=== PATIENT | male | born 1935 | race Caucasian/White ===

== ENCOUNTER 2017-08-04 16:32 | Emergency (ER) | payer MEDICARE ==
[~2017-08-04] VITALS: Ht 172.7 cm; Wt 85.0 kg
[2017-08-04] MEDS ORDERED: SODIUM CHLORIDE 0.9% 1,000 ML IV ONE (18:21)
[2017-08-04 18:54] LABS: BASOPHILS % 0.9 % (0.0-2.0); EOSINOPHILS % 3.3 % (0.0-5.0); HEMATOCRIT. 25.9 % (42.0-52.0); HEMOGLOBIN. 9.1 g/dL (14.0-18.0); LYMPHOCYTES % 13.5 % (20.0-50.0); MEAN CORPUSCULAR HEMOGLOBIN 34.6 pg (28.0-32.0); MEAN CORPUSCULAR VOLUME 98.4 fL (80.0-94.0); MEAN PLATELET VOLUME 7.8 fl (7.4-10.4); MONOCYTES % 7.2 % (2.0-8.0); NEUTROPHILS % 75.1 % (40.0-76.0); PLATELET 163 x1000/uL (130-400); RED BLOOD CELL COUNT 2.63 mill/uL (4.7-6.1)
[2017-08-04 18:59] LABS: CHLORIDE 105 mEq/L (98-107)
[2017-08-04 19:01] LABS: INR 1.1; PROTHROMBIN TIME 11.8 sec (9.4-11.6)
[2017-08-04 19:02] LABS: ETHANOL BLOOD < 10 mg/dL
[2017-08-04 19:04] LABS: AMMONIA 29 uMol/L (<32)
[2017-08-04] MEDS ORDERED: ASPIRIN 325MG EC TABLET PO ONE (20:00)
[2017-08-04 21:24] VITALS: BP 119/70
== END 2017-08-04 22:10 | disposition left against medical advice (07) ==
LOC: ER 17:00
DX: R55 Syncope and collapse (principal); D50.9 Iron deficiency anemia, unspecified; N28.9 Disorder of kidney and ureter, unspecified; R74.0 Nonspecific elevation of levels of transaminase and lactic acid dehydrogenase [LDH]; I10 Essential (primary) hypertension; E11.9 Type 2 diabetes mellitus without complications; I25.2 Old myocardial infarction; Z79.82 Long term (current) use of aspirin; Z86.73 Personal history of transient ischemic attack (TIA), and cerebral infarction without residual deficits; Z95.0 Presence of cardiac pacemaker
CPT/HCPCS: 36415; 70450; 71045; 80053; 82140; 83690; 83880; 84484; 85025; 85610; 93005; 96360; 99285; G0482; J7030

== ENCOUNTER → 2019-03-01 | Outpatient (CLI) | payer MEDICARE | END | disposition home or self-care (01) | LOC: RAD 15:21 | PROVIDERS: ATTEND Podiatrist Foot & Ankle Surgery | DX: M77.32 Calcaneal spur, left foot (principal) | CPT/HCPCS: 73630 ==

== ENCOUNTER → 2019-04-11 | Outpatient (CLI) | payer MEDICARE | END | disposition home or self-care (01) | LOC: RAD 13:57 | PROVIDERS: ATTEND Podiatrist Foot & Ankle Surgery | DX: S92.322A Displaced fracture of second metatarsal bone, left foot, initial encounter for closed fracture (principal); M77.32 Calcaneal spur, left foot; X58.XXXA Exposure to other specified factors, initial encounter; Y93.89 Activity, other specified; Y92.89 Other specified places as the place of occurrence of the external cause; Y99.8 Other external cause status | CPT/HCPCS: 73630 ==

== ENCOUNTER → 2019-09-13 | Outpatient (CLI) | payer MEDICARE | END | disposition home or self-care (01) | LOC: LAB 12:42 | PROVIDERS: ATTEND Podiatrist Foot & Ankle Surgery | DX: M25.572 Pain in left ankle and joints of left foot (principal) | CPT/HCPCS: 73610 ==

== ENCOUNTER → 2019-11-27 | Outpatient (CLI) | payer MEDICARE | END | disposition home or self-care (01) | LOC: RAD 13:44 | PROVIDERS: ATTEND Podiatrist Foot & Ankle Surgery | DX: S92.322D Displaced fracture of second metatarsal bone, left foot, subsequent encounter for fracture with routine healing (principal); M19.072 Primary osteoarthritis, left ankle and foot; M19.071 Primary osteoarthritis, right ankle and foot; X58.XXXD Exposure to other specified factors, subsequent encounter | CPT/HCPCS: 73630 ==

== ENCOUNTER 2023-07-29 19:06 | Inpatient (IN) | payer MEDICARE, OTHER ==
[~2023-07-29] VITALS: Ht 177.8 cm; Wt 79.8 kg
[~2023-07-29 19:06] MED LIST: ASPI-1160 PO; ATOR-2 MT; BUME1TAB8 MT; CALC-1305 PO; EMPA25TA MT; ERGO1250 PO; FERR325T30 PO; FINA5TAB11 MT; GABA-532 PO; INSU100I24 SUBCUT; INSULIN GLARGINE 100 UNITS/ML SUBCUT SCH; METO-411 MT; PANT40TA51 MT; SACU1TAB MT; SENN-257 MT; SPIR25TA6 MT; TAMS-11 MT
[2023-07-29] MEDS ORDERED: NITROGLYCERIN 0.4MG TABLET SL SL PRN (19:30)
[2023-07-29] MEDS ORDERED: ONDANSETRON HCL 4MG/2ML INJ IV PRN (19:30)
[2023-07-29] MEDS ORDERED: DEXTROSE 50% WATER 50ML SYRINGE IV PRN (19:30)
[2023-07-29] MEDS ORDERED: CLONIDINE 0.1MG TABLET PO PRN (19:30)
[2023-07-29] MEDS ORDERED: ACETAMINOPHEN 325MG TABLET PO PRN (19:30)
[2023-07-29] MEDS ORDERED: MAGNESIUM/ALUMINUM HYDROXIDE/SIMETHICONE 30ML UDC PO PRN (19:30)
[2023-07-29] MEDS ORDERED: DOCUSATE SODIUM 100MG CAPSULE PO PRN (19:30)
[2023-07-29 20:00] VITALS: BP 100/61; PULSE 95; RESP 20; TEMP 97
[2023-07-29] MEDS: BLOOD SUGAR DIAGNOSTIC STRIP TEST SCH (21:00)
[2023-07-29] MEDS: INSULIN LISPRO 100 UNITS/ML SUBCUT SCH (21:00)
[2023-07-29] MEDS: ACETAMINOPHEN 325MG TABLET PO PRN (22:34)
[2023-07-29] MEDS: PANTOPRAZOLE SODIUM 40 MG/VIAL IV SCH (22:36)
[2023-07-29] MEDS: CEFTRIAXONE 1GM/50ML 50 ML IV SCH (22:37)
[2023-07-29 23:47] VITALS: PULSE 108; RESP 18; O2SAT 98
[2023-07-29] MEDS: IPRATROPIUM/ALBUTEROL 0.5-3(2.5)MG/3ML NEB HHN PRN (23:47)
[2023-07-30] MEDS ORDERED: SACU1TAB PO (00:29)
[2023-07-30] MEDS: MELATONIN 3MG TABLET PO PRN (01:24)
[2023-07-30] MEDS ORDERED: *PATIENT'S OWN MEDICATION STORAGE XX SCH (06:30)
[2023-07-30 06:59] LABS: BASOPHILS % 1.3 % (0.0-2.0); EOSINOPHILS % 5.4 % (0.0-5.0); HEMATOCRIT. 24.4 % (42.0-52.0); LYMPHOCYTES % 11.7 % (20.0-50.0); MEAN CORPUSCULAR HEMOGLOBIN 32.7 pg (28.0-32.0); MEAN CORPUSCULAR VOLUME 99.1 fL (80.0-94.0); MEAN PLATELET VOLUME 8.6 fl (7.4-10.4); MONOCYTES % 6.1 % (2.0-8.0); NEUTROPHILS % 75.5 % (40.0-76.0); PLATELET 202 x1000/uL (130-400); RED BLOOD CELL COUNT 2.46 mill/uL (4.7-6.1); RED CELL DISTRIBUTION WIDTH 17.1 % (11.6-14.6); WHITE BLOOD COUNT 5.2 x1000/uL (4.5-11.0)
[2023-07-30 07:20] LABS: CHLORIDE 112 mEq/L (98-107); POTASSIUM 4.4 mEq/L (3.5-5.1); SODIUM 139 mEq/L (136-145)
[2023-07-30 07:22] VITALS: PULSE 100; RESP 20
[2023-07-30 07:38] LABS: CARBON DIOXIDE 20 mEq/L (21-32)
[2023-07-30 07:44] LABS: CREATININE 1.5 mg/dL (0.6-1.3); GLUCOSE 119 mg/dL (70-105); UREA NITROGEN BLOOD 36 mg/dL (9-23)
[2023-07-30 07:46] LABS: ALANINE AMINOTRANSFERASE 12 IU/L (10-49); ALBUMIN 3.1 g/dL (3.2-4.8); ASPARTATE AMINOTRANSFERASE 18 IU/L (<34)
[2023-07-30 07:47] LABS: BILIRUBIN TOTAL 0.5 mg/dL (0.1-1.0); PROTEIN TOTAL 6.6 g/dL (6.0-8.3)
[2023-07-30 07:49] LABS: PREALBUMIN < 5.0 mg/dl (10.0-40.0)
[2023-07-30 08:00] VITALS: BP 104/54; PULSE 79; RESP 20; TEMP 97.7
[2023-07-30 08:36] VITALS: BP 132/54; TEMP 97.8
[2023-07-30] MEDS: ASCORBIC ACID 500 MG TABLET PO SCH (08:53)
[2023-07-30] MEDS: FERROUS SULFATE 325MG TABLET PO SCH (08:53)
[2023-07-30] MEDS: INSULIN GLARGINE 100 UNITS/ML SUBCUT SCH (09:18)
[2023-07-30 20:00] VITALS: BP 111/63; PULSE 78; RESP 20; TEMP 98.4
[2023-07-30] MEDS ORDERED: MELATONIN 3MG TABLET PO SCH (21:00)
[2023-07-30 21:50] VITALS: PULSE 87; RESP 18; O2SAT 96
[2023-07-30] MEDS: NITROFURANTOIN 100MG M/M CAPSULE PO SCH (21:56)
[2023-07-30] MEDS: MELATONIN 3MG TABLET PO SCH (21:57)
[2023-07-31 08:00] VITALS: BP 109/52; PULSE 79; RESP 20; TEMP 96.4; TEMP 98
[2023-07-31 08:05] LABS: BASOPHILS % 1.2 % (0.0-2.0); EOSINOPHILS % 5.1 % (0.0-5.0); HEMATOCRIT. 23.8 % (42.0-52.0); HEMOGLOBIN. 7.9 g/dL (14.0-18.0); LYMPHOCYTES % 10.8 % (20.0-50.0); MEAN CORPUSCULAR HEMOGLOBIN 33.1 pg (28.0-32.0); MEAN CORPUSCULAR HGB CONC 33.2 g/dL (31.0-37.0); MEAN CORPUSCULAR VOLUME 99.7 fL (80.0-94.0); MONOCYTES % 5.1 % (2.0-8.0); NEUTROPHILS % 77.8 % (40.0-76.0); PLATELET 196 x1000/uL (130-400); RED BLOOD CELL COUNT 2.39 mill/uL (4.7-6.1); RED CELL DISTRIBUTION WIDTH 16.6 % (11.6-14.6); WHITE BLOOD COUNT 5.1 x1000/uL (4.5-11.0)
[2023-07-31 08:08] LABS: CHLORIDE 112 mEq/L (98-107); POTASSIUM 4.5 mEq/L (3.5-5.1); SODIUM 137 mEq/L (136-145)
[2023-07-31 08:09] LABS: CARBON DIOXIDE 21 mEq/L (21-32)
[2023-07-31 08:13] LABS: IRON 24 ug/dL (65-175)
[2023-07-31 08:14] LABS: CREATININE 1.5 mg/dL (0.6-1.3); GLUCOSE 121 mg/dL (70-105); UREA NITROGEN BLOOD 33 mg/dL (9-23)
[2023-07-31 08:16] LABS: ALANINE AMINOTRANSFERASE 10 IU/L (10-49); ALBUMIN 3.1 g/dL (3.2-4.8); ASPARTATE AMINOTRANSFERASE 18 IU/L (<34); BILIRUBIN TOTAL 0.5 mg/dL (0.1-1.0); PHOSPHORUS 3.3 mg/dL (2.5-4.9); PROTEIN TOTAL 6.3 g/dL (6.0-8.3); TOTAL IRON BINDING CAPACITY 328 ug/dl (250-425)
[2023-07-31 08:17] LABS: THYROID STIMULATING HORMONE 1.79 uIU/mL (0.55-4.78)
[2023-07-31 08:20] LABS: FERRITIN 111 ng/mL (22-322); FOLIC ACID (FOLATE) SERUM 15.76 ng/mL (>5.38); VITAMIN B12 SERUM 1242 pg/mL (211-911)
[2023-07-31 08:37] LABS: CALCIUM 9.4 mg/dL (8.7-10.4)
[2023-07-31] MEDS ORDERED: NALOXONE HCL 0.4MG/ML VIAL IV PRN (10:45)
[2023-07-31] MEDS: FERROUS SULFATE 325MG TABLET PO SCH (13:29)
[2023-07-31 17:00] LABS: CLARITY URINE CLEAR (CLEAR); COLOR URINE YELLOW (YELLOW); GLUCOSE URINE NEGATIVE (NEGATIVE); KETONES URINE TRACE (NEGATIVE); LEUKOCYTE ESTERASE URINE 1+ (NEGATIVE); NITRITE URINE NEGATIVE (NEGATIVE); OCCULT BLOOD URINE 1+ (NEGATIVE); PH URINE 5.5 (4.5-8.0); PROTEIN URINE 1+ (NEGATIVE); SPECIFIC GRAVITY URINE 1.019 (1.005-1.030); UROBILINOGEN URINE 0.2 E.U./dL (0.2-1.0)
[2023-07-31 17:23] LABS: BACTERIA URINE TRACE; SQUAMOUS EPITHELIAL CELL URINE FEW /lpf (RARE/1+); WBC URINE 0-2 /hpf (0-2)
[2023-07-31 20:00] VITALS: BP 107/54; PULSE 80; RESP 20; TEMP 97.5
[2023-07-31] MEDS: ZOLPIDEM TARTRATE 5MG TABLET PO PRN (20:52)
[2023-07-31 21:35] VITALS: PULSE 78; RESP 18
[2023-08-01 08:00] VITALS: BP 112/53; PULSE 71; RESP 18; TEMP 99.3
[2023-08-01] MEDS: ASCORBIC ACID 500 MG TABLET PO SCH (09:18)
[2023-08-01 13:05] VITALS: PULSE 80; RESP 20
[2023-08-01 19:46] VITALS: BP 105/55; PULSE 95; RESP 19; TEMP 97.6
[2023-08-01 21:51] VITALS: PULSE 104; RESP 22; O2SAT 90
[2023-08-02 06:35] LABS: BASOPHILS % 0.8 % (0.0-2.0); EOSINOPHILS % 3.9 % (0.0-5.0); HEMATOCRIT. 23.5 % (42.0-52.0); HEMOGLOBIN. 7.7 g/dL (14.0-18.0); LYMPHOCYTES % 11.3 % (20.0-50.0); MEAN CORPUSCULAR HEMOGLOBIN 32.7 pg (28.0-32.0); MEAN CORPUSCULAR HGB CONC 32.8 g/dL (31.0-37.0); MEAN CORPUSCULAR VOLUME 99.7 fL (80.0-94.0); MEAN PLATELET VOLUME 7.7 fl (7.4-10.4); MONOCYTES % 6.7 % (2.0-8.0); NEUTROPHILS % 77.3 % (40.0-76.0); PLATELET 192 x1000/uL (130-400); RED BLOOD CELL COUNT 2.35 mill/uL (4.7-6.1); RED CELL DISTRIBUTION WIDTH 16.2 % (11.6-14.6); WHITE BLOOD COUNT 4.5 x1000/uL (4.5-11.0)
[2023-08-02 06:51] LABS: CARBON DIOXIDE 20 mEq/L (21-32); CHLORIDE 109 mEq/L (98-107); POTASSIUM 4.3 mEq/L (3.5-5.1); SODIUM 136 mEq/L (136-145)
[2023-08-02 06:52] LABS: CALCIUM 9.3 mg/dL (8.7-10.4)
[2023-08-02 06:57] LABS: CREATININE 1.5 mg/dL (0.6-1.3); GLUCOSE 112 mg/dL (70-105); UREA NITROGEN BLOOD 32 mg/dL (9-23)
[2023-08-02 06:59] LABS: PHOSPHORUS 3.2 mg/dL (2.5-4.9)
[2023-08-02 08:00] VITALS: BP 109/62; PULSE 94; RESP 19; TEMP 97.3
[2023-08-02] MEDS: PANTOPRAZOLE 40MG DR TABLET PO SCH (10:00)
[2023-08-02] MEDS: LEVOFLOXACIN 250MG TABLET PO SCH (14:46)
[2023-08-02 16:22] VITALS: PULSE 91; RESP 20; O2SAT 98
[2023-08-02 20:00] VITALS: BP 112/70; PULSE 96; RESP 18; TEMP 97.1
[2023-08-02 23:40] VITALS: PULSE 93; RESP 18; O2SAT 92
[2023-08-03] MEDS: PANTOPRAZOLE 40MG DR TABLET PO SCH (06:29)
[2023-08-03 07:29] LABS: BASOPHILS % 0.9 % (0.0-2.0); DIFFERENTIAL COMMENT 0; HEMATOCRIT. 24.3 % (42.0-52.0); LYMPHOCYTES % 11.1 % (20.0-50.0); MEAN CORPUSCULAR HEMOGLOBIN 33.6 pg (28.0-32.0); MEAN CORPUSCULAR HGB CONC 33.1 g/dL (31.0-37.0); MEAN CORPUSCULAR VOLUME 101.6 fL (80.0-94.0); MEAN PLATELET VOLUME 8.3 fl (7.4-10.4); MONOCYTES % 5.4 % (2.0-8.0); NEUTROPHILS % 79.6 % (40.0-76.0); PLATELET 197 x1000/uL (130-400); RED BLOOD CELL COUNT 2.39 mill/uL (4.7-6.1); RED CELL DISTRIBUTION WIDTH 16.4 % (11.6-14.6); WHITE BLOOD COUNT 5.4 x1000/uL (4.5-11.0)
[2023-08-03 08:00] VITALS: BP 129/63; PULSE 111; RESP 17; TEMP 97.2
[2023-08-03 08:04] LABS: CALCIUM 9.3 mg/dL (8.7-10.4); POTASSIUM 4.7 mEq/L (3.5-5.1)
[2023-08-03 08:10] LABS: CREATININE 1.4 mg/dL (0.6-1.3)
[2023-08-03] MEDS: MULTIVITAMINS,THER W-MINERALS TABLET PO SCH (08:10)
[2023-08-03 09:10] VITALS: PULSE 88; RESP 18; O2SAT 99
[2023-08-03] MEDS: ERGOCALCIFEROL 50000UNITS CAPSULE PO SCH (13:18)
[2023-08-03] MEDS: TRAMADOL 50MG TABLET PO PRN (15:17)
[2023-08-03 15:38] VITALS: PULSE 94; RESP 18; O2SAT 98
[2023-08-03 20:00] VITALS: BP 113/45; PULSE 98; RESP 20; TEMP 97.2
[2023-08-03 20:03] VITALS: PULSE 106; RESP 18; O2SAT 97
[2023-08-03] MEDS: ACETYLCYSTEINE 200MG/ML 20% VIAL 4ML INH NR (20:03)
[2023-08-03] MEDS: IPRATROPIUM/ALBUTEROL 0.5-3(2.5)MG/3ML NEB HHN SCH (20:03)
[2023-08-03] MEDS: CARVEDILOL 3.125 MG TABLET PO SCH (21:00)
[2023-08-03] MEDS: ATORVASTATIN CALCIUM 20MG TABLET PO SCH (21:16)
[2023-08-04 02:12] VITALS: PULSE 98; RESP 20; O2SAT 95
[2023-08-04 06:28] LABS: CARBON DIOXIDE 20 mEq/L (21-32); CHLORIDE 109 mEq/L (98-107); POTASSIUM 4.5 mEq/L (3.5-5.1); SODIUM 136 mEq/L (136-145)
[2023-08-04 06:29] LABS: CALCIUM 9.1 mg/dL (8.7-10.4)
[2023-08-04 06:34] LABS: CREATININE 1.5 mg/dL (0.6-1.3); GLUCOSE 104 mg/dL (70-105); TRIGLYCERIDE 54 mg/dL (0-150); UREA NITROGEN BLOOD 28 mg/dL (9-23)
[2023-08-04 06:35] LABS: CHOLESTEROL 115 mg/dL (<200); LDL CHOLESTEROL 70 mg/dL (5-100)
[2023-08-04 06:36] LABS: HDL CHOLESTEROL 39 mg/dL (>55)
[2023-08-04 06:56] LABS: BASOPHILS % 1.1 % (0.0-2.0); EOSINOPHILS % 3.6 % (0.0-5.0); HEMATOCRIT. 24.4 % (42.0-52.0); HEMOGLOBIN. 8.2 g/dL (14.0-18.0); LYMPHOCYTES % 11.7 % (20.0-50.0); MEAN CORPUSCULAR HEMOGLOBIN 32.9 pg (28.0-32.0); MEAN CORPUSCULAR HGB CONC 33.4 g/dL (31.0-37.0); MEAN CORPUSCULAR VOLUME 98.4 fL (80.0-94.0); MEAN PLATELET VOLUME 8.4 fl (7.4-10.4); MONOCYTES % 6.3 % (2.0-8.0); NEUTROPHILS % 77.3 % (40.0-76.0); PLATELET 205 x1000/uL (130-400); RED BLOOD CELL COUNT 2.48 mill/uL (4.7-6.1); RED CELL DISTRIBUTION WIDTH 16.5 % (11.6-14.6); WHITE BLOOD COUNT 5.2 x1000/uL (4.5-11.0)
[2023-08-04 08:00] VITALS: BP 111/55; PULSE 87; RESP 18; TEMP 96.4
[2023-08-04 08:21] VITALS: PULSE 88; RESP 20
[2023-08-04] MEDS ORDERED: FUROSEMIDE 40MG/4ML VIAL IVP NR (09:00)
[2023-08-04 13:30] VITALS: PULSE 88; RESP 18
[2023-08-04] MEDS: LACTULOSE 20G/30ML UDC PO SCH (13:33)
[2023-08-04] MEDS: BISACODYL 10MG SUPP PR NR (13:34)
[2023-08-04] MEDS: ENOXAPARIN 80MG/0.8ML SYR SUBCUT NR (15:02)
[2023-08-04 16:28] LABS: INR 1.1; PROTHROMBIN TIME 11.7 sec (9.6-11.0)
[2023-08-04 20:00] VITALS: BP 113/57; PULSE 106; RESP 18; TEMP 98.2
[2023-08-04 20:04] VITALS: PULSE 97; RESP 18; O2SAT 99
[2023-08-05 02:10] VITALS: PULSE 101; RESP 18
[2023-08-05 05:57] LABS: HEMOGLOBIN. 8.1 g/dL (14.0-18.0); MEAN CORPUSCULAR HEMOGLOBIN 32.9 pg (28.0-32.0); MEAN CORPUSCULAR HGB CONC 32.2 g/dL (31.0-37.0); MEAN CORPUSCULAR VOLUME 102.1 fL (80.0-94.0); MEAN PLATELET VOLUME 8.3 fl (7.4-10.4); PLATELET 221 x1000/uL (130-400); RED BLOOD CELL COUNT 2.45 mill/uL (4.7-6.1); RED CELL DISTRIBUTION WIDTH 17.1 % (11.6-14.6); WHITE BLOOD COUNT 8.1 x1000/uL (4.5-11.0)
[2023-08-05] MEDS: ENOXAPARIN 80MG/0.8ML SYR SUBCUT SCH (06:00)
[2023-08-05 06:06] LABS: DIFFERENTIAL COMMENT 1
[2023-08-05 06:08] LABS: CHLORIDE 107 mEq/L (98-107); SODIUM 133 mEq/L (136-145)
[2023-08-05 06:09] LABS: CARBON DIOXIDE 19 mEq/L (21-32)
[2023-08-05 06:10] LABS: CALCIUM 9.4 mg/dL (8.7-10.4)
[2023-08-05 06:14] LABS: CREATININE 1.5 mg/dL (0.6-1.3); GLUCOSE 135 mg/dL (70-105); UREA NITROGEN BLOOD 29 mg/dL (9-23)
[2023-08-05 07:40] VITALS: PULSE 78; RESP 18; O2SAT 97
[2023-08-05 08:00] VITALS: BP 120/53; PULSE 89; RESP 19; TEMP 99.3
[2023-08-05] MEDS: FUROSEMIDE 40MG TABLET PO SCH (09:25)
[2023-08-05] MEDS: NA PHOS,M-B/NA PHOS,DI-BA ENEMA 118ML PR NR (10:15)
[2023-08-05 14:06] LABS: ANISOCYTOSIS 1+; PLATELET ESTIMATE NORMAL
[2023-08-05 14:25] VITALS: PULSE 81; RESP 16; O2SAT 98
[2023-08-05] MEDS: BISACODYL 10MG SUPP PR NR (16:22)
[2023-08-05] MEDS: GUAIFENESIN 200MG/10ML SUGAR FREE UDC PO PRN (16:30)
[2023-08-05 20:00] VITALS: BP 122/60; PULSE 94; RESP 18; TEMP 96.9
[2023-08-05 20:36] VITALS: PULSE 96; RESP 16; O2SAT 92
[2023-08-05] MEDS: SENNOSIDES/DOCUSATE SOD 8.6/50MG TABLET PO SCH (21:02)
[2023-08-06] MEDS: TRAMADOL 50MG TABLET PO PRN (00:38)
[2023-08-06] MEDS: ZOLPIDEM TARTRATE 5MG TABLET PO PRN (00:39)
[2023-08-06 02:13] VITALS: PULSE 87; RESP 16; O2SAT 93
[2023-08-06 08:00] VITALS: BP 102/54; PULSE 91; RESP 20; TEMP 97.6
[2023-08-06 09:35] VITALS: PULSE 90; RESP 20
[2023-08-06] MEDS: DOCUSATE SODIUM 250MG CAPSULE PO SCH (09:58)
[2023-08-06] MEDS ORDERED: NALOXONE HCL 0.4MG/ML VIAL IV PRN (11:30)
[2023-08-06 14:28] VITALS: PULSE 87; RESP 18
[2023-08-06 15:02] LABS: HEMATOCRIT. 29.3 % (42.0-52.0); HEMOGLOBIN. 9.2 g/dL (14.0-18.0); MEAN CORPUSCULAR HEMOGLOBIN 33.1 pg (28.0-32.0); MEAN CORPUSCULAR HGB CONC 31.5 g/dL (31.0-37.0); PLATELET 241 x1000/uL (130-400); RED BLOOD CELL COUNT 2.79 mill/uL (4.7-6.1); RED CELL DISTRIBUTION WIDTH 17.2 % (11.6-14.6); WHITE BLOOD COUNT 11.5 x1000/uL (4.5-11.0)
[2023-08-06 15:03] LABS: DIFFERENTIAL COMMENT 1
[2023-08-06 15:05] LABS: CHLORIDE 105 mEq/L (98-107); POTASSIUM 4.7 mEq/L (3.5-5.1); SODIUM 131 mEq/L (136-145)
[2023-08-06 15:06] LABS: CALCIUM 9.8 mg/dL (8.7-10.4); CARBON DIOXIDE 20 mEq/L (21-32)
[2023-08-06 15:11] LABS: CREATININE 1.5 mg/dL (0.6-1.3); GLUCOSE 155 mg/dL (70-105); UREA NITROGEN BLOOD 33 mg/dL (9-23)
[2023-08-06 15:13] LABS: PHOSPHORUS 3.4 mg/dL (2.5-4.9)
[2023-08-06 15:55] LABS: ANISOCYTOSIS 1+; PLATELET ESTIMATE NORMAL
[2023-08-06 19:02] LABS: LACTATE DEHYDROGENASE 412 IU/L (120-246)
[2023-08-06 20:00] VITALS: BP 129/58; PULSE 94; RESP 20; TEMP 97.2
[2023-08-06 21:34] VITALS: PULSE 95; RESP 18; O2SAT 96
[2023-08-07 02:22] VITALS: PULSE 103; RESP 18; O2SAT 96
[2023-08-07 07:37] VITALS: PULSE 97; RESP 16; O2SAT 98
[2023-08-07 08:00] VITALS: BP 115/56; PULSE 99; RESP 18; TEMP 98.1
[2023-08-07] MEDS: POLYETHYLENE GLYCOL 3350 (17GM) 1 DOSE PACK PO SCH (08:28)
[2023-08-07 09:05] LABS: INR 1.1; PROTHROMBIN TIME 11.9 sec (9.6-11.0)
[2023-08-07 11:20] LABS: PROTEIN BODY FLUID < 2.0 gm/dL
[2023-08-07 13:12] LABS: BODY FLUID MONOCYTES 6 %; BODY FLUID RBC 54 /cu mm (0-2000); BODY FLUID WBC 69 /cu mm (0-200)
[2023-08-07 15:20] VITALS: PULSE 88; RESP 18; O2SAT 98
[2023-08-07 18:58] LABS: INR 1.1
[2023-08-07 20:00] VITALS: BP 100/43; PULSE 94; RESP 20; TEMP 98
[2023-08-07 21:12] VITALS: PULSE 85; RESP 18
[2023-08-08 07:53] LABS: HEMATOCRIT. 24.7 % (42.0-52.0); HEMOGLOBIN. 8.1 g/dL (14.0-18.0); MEAN CORPUSCULAR HEMOGLOBIN 32.2 pg (28.0-32.0); MEAN CORPUSCULAR HGB CONC 32.6 g/dL (31.0-37.0); MEAN CORPUSCULAR VOLUME 98.7 fL (80.0-94.0); MEAN PLATELET VOLUME 8.4 fl (7.4-10.4); PLATELET 251 x1000/uL (130-400); RED CELL DISTRIBUTION WIDTH 16.2 % (11.6-14.6); WHITE BLOOD COUNT 11.2 x1000/uL (4.5-11.0)
[2023-08-08 08:00] VITALS: BP 99/50; PULSE 103; RESP 17; TEMP 97.9
[2023-08-08 08:02] LABS: CHLORIDE 108 mEq/L (98-107); POTASSIUM 4.5 mEq/L (3.5-5.1); SODIUM 131 mEq/L (136-145)
[2023-08-08 08:03] LABS: CARBON DIOXIDE 20 mEq/L (21-32)
[2023-08-08 08:08] LABS: CREATININE 1.4 mg/dL (0.6-1.3); GLUCOSE 135 mg/dL (70-105); UREA NITROGEN BLOOD 38 mg/dL (9-23)
[2023-08-08 08:10] LABS: PHOSPHORUS 2.9 mg/dL (2.5-4.9)
[2023-08-08 08:34] LABS: DIFFERENTIAL COMMENT 1
[2023-08-08] MEDS ORDERED: SODIUM BICARBONATE 4% (2.4MEQ) 5ML VIAL IV ONE (09:11)
[2023-08-08 13:52] VITALS: PULSE 98; RESP 16; O2SAT 94
[2023-08-08 20:00] VITALS: BP 118/41; PULSE 99; RESP 20; TEMP 97
[2023-08-08 22:05] VITALS: PULSE 97; RESP 16; O2SAT 96
[2023-08-09 01:30] VITALS: PULSE 87; RESP 16; O2SAT 97
[2023-08-09 07:58] LABS: HEMATOCRIT. 24.6 % (42.0-52.0); HEMOGLOBIN. 8.2 g/dL (14.0-18.0); MEAN CORPUSCULAR HEMOGLOBIN 32.6 pg (28.0-32.0); MEAN CORPUSCULAR HGB CONC 33.4 g/dL (31.0-37.0); MEAN CORPUSCULAR VOLUME 97.6 fL (80.0-94.0); PLATELET 254 x1000/uL (130-400); RED BLOOD CELL COUNT 2.52 mill/uL (4.7-6.1); RED CELL DISTRIBUTION WIDTH 15.8 % (11.6-14.6); WHITE BLOOD COUNT 9.3 x1000/uL (4.5-11.0)
[2023-08-09 08:00] VITALS: BP 115/67; PULSE 85; RESP 19; TEMP 98.1
[2023-08-09 08:05] LABS: CARBON DIOXIDE 20 mEq/L (21-32); CHLORIDE 107 mEq/L (98-107); POTASSIUM 4.5 mEq/L (3.5-5.1); SODIUM 133 mEq/L (136-145)
[2023-08-09 08:10] LABS: CREATININE 1.4 mg/dL (0.6-1.3); GLUCOSE 131 mg/dL (70-105)
[2023-08-09 08:11] LABS: UREA NITROGEN BLOOD 38 mg/dL (9-23)
[2023-08-09 08:13] LABS: PHOSPHORUS 2.7 mg/dL (2.5-4.9)
[2023-08-09 08:25] LABS: DIFFERENTIAL COMMENT 1
[2023-08-09 08:57] LABS: HEMATOCRIT. 24.1 % (42.0-52.0); HEMOGLOBIN. 8.1 g/dL (14.0-18.0); MEAN CORPUSCULAR HGB CONC 33.6 g/dL (31.0-37.0); MEAN CORPUSCULAR VOLUME 98.2 fL (80.0-94.0); MEAN PLATELET VOLUME 8.2 fl (7.4-10.4); PLATELET 248 x1000/uL (130-400); RED BLOOD CELL COUNT 2.45 mill/uL (4.7-6.1); RED CELL DISTRIBUTION WIDTH 16.1 % (11.6-14.6); WHITE BLOOD COUNT 9.2 x1000/uL (4.5-11.0)
[2023-08-09 08:58] LABS: DIFFERENTIAL COMMENT 1
[2023-08-09 09:09] LABS: POTASSIUM 4.5 mEq/L (3.5-5.1)
[2023-08-09 09:10] LABS: CALCIUM 8.9 mg/dL (8.7-10.4)
[2023-08-09 09:15] LABS: CREATININE 1.5 mg/dL (0.6-1.3)
[2023-08-09 09:33] LABS: PLATELET ESTIMATE NORMAL
[2023-08-09 10:20] VITALS: PULSE 106; RESP 18; O2SAT 100
[2023-08-09 12:20] LABS: ANISOCYTOSIS 1+
[2023-08-09 14:34] LABS: ANISOCYTOSIS 1+; PLATELET ESTIMATE NORMAL
[2023-08-09 15:30] VITALS: PULSE 105; RESP 18; O2SAT 99
[2023-08-09 18:02] LABS: PLATELET ESTIMATE NORMAL
[2023-08-09] MEDS: CEFEPIME 2GM/100ML 100 ML IV SCH (18:30)
[2023-08-09 20:00] VITALS: BP 108/48; PULSE 91; RESP 19; TEMP 96.9
[2023-08-09] MEDS: ZOLPIDEM TARTRATE 5MG TABLET PO SCH (21:57)
[2023-08-10 07:33] LABS: INR 1.1; PROTHROMBIN TIME 11.9 sec (9.6-11.0)
[2023-08-10 07:38] LABS: CARBON DIOXIDE 20 mEq/L (21-32); CHLORIDE 107 mEq/L (98-107); POTASSIUM 4.3 mEq/L (3.5-5.1); SODIUM 133 mEq/L (136-145)
[2023-08-10 07:39] LABS: CALCIUM 8.8 mg/dL (8.7-10.4)
[2023-08-10 07:44] LABS: CREATININE 1.4 mg/dL (0.6-1.3); GLUCOSE 111 mg/dL (70-105); UREA NITROGEN BLOOD 37 mg/dL (9-23)
[2023-08-10 07:46] LABS: PHOSPHORUS 2.7 mg/dL (2.5-4.9)
[2023-08-10 08:00] VITALS: BP 100/48; PULSE 97; RESP 17; TEMP 97.9
[2023-08-10] MEDS: MAGNESIUM GLUCONATE 500MG TABLET PO NR (10:58)
[2023-08-10 12:27] LABS: HEMATOCRIT. 26.3 % (42.0-52.0); HEMOGLOBIN. 8.6 g/dL (14.0-18.0); MEAN CORPUSCULAR HEMOGLOBIN 32.2 pg (28.0-32.0); MEAN CORPUSCULAR HGB CONC 32.6 g/dL (31.0-37.0); MEAN PLATELET VOLUME 7.8 fl (7.4-10.4); PLATELET 260 x1000/uL (130-400); RED BLOOD CELL COUNT 2.67 mill/uL (4.7-6.1); RED CELL DISTRIBUTION WIDTH 16.3 % (11.6-14.6); WHITE BLOOD COUNT 8.6 x1000/uL (4.5-11.0)
[2023-08-10 12:29] LABS: DIFFERENTIAL COMMENT 1; MEAN CORPUSCULAR VOLUME 98.8 fL (80.0-94.0)
[2023-08-10 18:47] LABS: ANISOCYTOSIS 1+; PLATELET ESTIMATE NORMAL
[2023-08-10 20:00] VITALS: BP 140/62; PULSE 54; RESP 19; TEMP 98.1
[2023-08-11 07:00] LABS: CHLORIDE 106 mEq/L (98-107); POTASSIUM 4.1 mEq/L (3.5-5.1); SODIUM 132 mEq/L (136-145)
[2023-08-11 07:01] LABS: CARBON DIOXIDE 20 mEq/L (21-32)
[2023-08-11 07:06] LABS: CREATININE 1.5 mg/dL (0.6-1.3); GLUCOSE 157 mg/dL (70-105); UREA NITROGEN BLOOD 38 mg/dL (9-23)
[2023-08-11 07:08] LABS: PHOSPHORUS 2.4 mg/dL (2.5-4.9)
[2023-08-11 07:13] LABS: HEMATOCRIT. 25.1 % (42.0-52.0); HEMOGLOBIN. 8.4 g/dL (14.0-18.0); MEAN CORPUSCULAR HGB CONC 33.5 g/dL (31.0-37.0); MEAN CORPUSCULAR VOLUME 98.6 fL (80.0-94.0); MEAN PLATELET VOLUME 8.7 fl (7.4-10.4); PLATELET 243 x1000/uL (130-400); RED BLOOD CELL COUNT 2.55 mill/uL (4.7-6.1); RED CELL DISTRIBUTION WIDTH 15.8 % (11.6-14.6); WHITE BLOOD COUNT 7.4 x1000/uL (4.5-11.0)
[2023-08-11 07:50] LABS: CALCIUM 8.8 mg/dL (8.7-10.4)
[2023-08-11 07:54] LABS: DIFFERENTIAL COMMENT 1
[2023-08-11] MEDS ORDERED: SODIUM BICARBONATE 4% (2.4MEQ) 5ML VIAL IV ONE (07:58)
[2023-08-11 08:00] VITALS: BP 101/64; PULSE 78; RESP 20; TEMP 98.8
[2023-08-11] MEDS ORDERED: MAGNESIUM 2 G PREMIX 50 ML IV ONE (11:00)
[2023-08-11] MEDS: MAGNESIUM 2 G PREMIX 50 ML IV NR (11:47)
[2023-08-11] MEDS: SODIUM PHOSPHATE 15 MMOL in DEXT 5% WATER 245 ML IV NR (15:26)
[2023-08-11 16:14] LABS: PLATELET ESTIMATE NORMAL
[2023-08-11 20:00] VITALS: BP 105/47; PULSE 90; RESP 20; TEMP 96.8
[2023-08-12 08:00] VITALS: BP 106/47; PULSE 98; RESP 18; TEMP 96.9
[2023-08-12] MEDS ORDERED: NALOXONE HCL 0.4MG/ML VIAL IV PRN (09:45)
[2023-08-12] MEDS: TRAMADOL 50MG TABLET PO PRN (09:48)
[2023-08-12 10:31] LABS: HEMATOCRIT. 27.2 % (42.0-52.0); MEAN CORPUSCULAR HEMOGLOBIN 32.6 pg (28.0-32.0); MEAN CORPUSCULAR HGB CONC 33.1 g/dL (31.0-37.0); MEAN CORPUSCULAR VOLUME 98.6 fL (80.0-94.0); MEAN PLATELET VOLUME 8.6 fl (7.4-10.4); PLATELET 225 x1000/uL (130-400); RED BLOOD CELL COUNT 2.76 mill/uL (4.7-6.1); RED CELL DISTRIBUTION WIDTH 16.1 % (11.6-14.6); WHITE BLOOD COUNT 9.3 x1000/uL (4.5-11.0)
[2023-08-12 10:37] LABS: DIFFERENTIAL COMMENT 1
[2023-08-12 10:49] LABS: CALCIUM 8.7 mg/dL (8.7-10.4); CARBON DIOXIDE 20 mEq/L (21-32)
[2023-08-12 10:54] LABS: CREATININE 1.4 mg/dL (0.6-1.3)
[2023-08-12 10:55] LABS: GLUCOSE 157 mg/dL (70-105); UREA NITROGEN BLOOD 33 mg/dL (9-23)
[2023-08-12 12:15] LABS: CHLORIDE 104 mEq/L (98-107); POTASSIUM 3.9 mEq/L (3.5-5.1); SODIUM 131 mEq/L (136-145)
[2023-08-12 19:47] VITALS: BP 124/76; PULSE 81; RESP 17; TEMP 96.9
[2023-08-12 21:01] LABS: ANISOCYTOSIS 1+; PLATELET ESTIMATE NORMAL
[2023-08-13 08:00] VITALS: BP 111/43; PULSE 92; RESP 19; TEMP 97.5
[2023-08-13 10:48] LABS: HEMOGLOBIN. 8.8 g/dL (14.0-18.0); MEAN CORPUSCULAR HGB CONC 33.8 g/dL (31.0-37.0); MEAN CORPUSCULAR VOLUME 97.7 fL (80.0-94.0); MEAN PLATELET VOLUME 7.3 fl (7.4-10.4); PLATELET 234 x1000/uL (130-400); RED BLOOD CELL COUNT 2.67 mill/uL (4.7-6.1); RED CELL DISTRIBUTION WIDTH 15.6 % (11.6-14.6); WHITE BLOOD COUNT 9.9 x1000/uL (4.5-11.0)
[2023-08-13 10:49] LABS: DIFFERENTIAL COMMENT 1
[2023-08-13 11:03] LABS: POTASSIUM 4.1 mEq/L (3.5-5.1)
[2023-08-13 11:04] LABS: CALCIUM 8.4 mg/dL (8.7-10.4)
[2023-08-13 11:09] LABS: CREATININE 1.6 mg/dL (0.6-1.3)
[2023-08-13 14:00] VITALS: BP 111/43; PULSE 92; TEMP 97.5; O2SAT 94
[2023-08-14 01:58] LABS: OVALOCYTES 1+; PLATELET ESTIMATE NORMAL; TARGET CELLS 1+; TEAR DROP CELLS 1+
[2023-08-14 01:59] LABS: GIANT PLATELETS 1+
== END 2023-08-13 15:55 | DRG 557 ==
PROVIDERS: ADMIT Physical Medicine & Rehabilitation Spinal Cord Injury Medicine; ATTEND Internal Medicine
PROC: 0W993ZZ Drainage of Right Pleural Cavity, Percutaneous Approach (ICD-10-PCS; principal; 2023-08-07)
PROC: 0W993ZZ Drainage of Right Pleural Cavity, Percutaneous Approach (ICD-10-PCS; 2023-08-08)
PROC: 0W993ZZ Drainage of Right Pleural Cavity, Percutaneous Approach (ICD-10-PCS; 2023-08-11)
DX: M62.82 Rhabdomyolysis (principal); J18.9 Pneumonia, unspecified organism; J96.00 Acute respiratory failure, unspecified whether with hypoxia or hypercapnia; S42.391A Other fracture of shaft of right humerus, initial encounter for closed fracture; I13.0 Hypertensive heart and chronic kidney disease with heart failure and stage 1 through stage 4 chronic kidney disease, or unspecified chronic kidney disease; N17.9 Acute kidney failure, unspecified; N39.0 Urinary tract infection, site not specified; E87.20 Acidosis, unspecified; J90 Pleural effusion, not elsewhere classified; N18.9 Chronic kidney disease, unspecified; N40.0 Benign prostatic hyperplasia without lower urinary tract symptoms; K80.20 Calculus of gallbladder without cholecystitis without obstruction; I25.10 Atherosclerotic heart disease of native coronary artery without angina pectoris; D50.9 Iron deficiency anemia, unspecified; E11.22 Type 2 diabetes mellitus with diabetic chronic kidney disease; B96.1 Klebsiella pneumoniae [K. pneumoniae] as the cause of diseases classified elsewhere; I50.9 Heart failure, unspecified; B96.5 Pseudomonas (aeruginosa) (mallei) (pseudomallei) as the cause of diseases classified elsewhere; B96.89 Other specified bacterial agents as the cause of diseases classified elsewhere; E55.9 Vitamin D deficiency, unspecified; E78.5 Hyperlipidemia, unspecified; F17.200 Nicotine dependence, unspecified, uncomplicated; F32.A Depression, unspecified; I25.5 Ischemic cardiomyopathy; I48.0 Paroxysmal atrial fibrillation; J43.9 Emphysema, unspecified; K56.41 Fecal impaction; R26.2 Difficulty in walking, not elsewhere classified; R53.81 Other malaise; S30.0XXA Contusion of lower back and pelvis, initial encounter; R55 Syncope and collapse; S52.021A Displaced fracture of olecranon process without intraarticular extension of right ulna, initial encounter for closed fracture; R59.9 Enlarged lymph nodes, unspecified; R74.8 Abnormal levels of other serum enzymes; S42.191A Fracture of other part of scapula, right shoulder, initial encounter for closed fracture; S42.011A Anterior displaced fracture of sternal end of right clavicle, initial encounter for closed fracture; S42.031A Displaced fracture of lateral end of right clavicle, initial encounter for closed fracture; Z86.73 Personal history of transient ischemic attack (TIA), and cerebral infarction without residual deficits; Z91.81 History of falling; Z95.1 Presence of aortocoronary bypass graft; Z95.810 Presence of automatic (implantable) cardiac defibrillator; W18.30XA Fall on same level, unspecified, initial encounter; Y93.89 Activity, other specified; Y92.89 Other specified places as the place of occurrence of the external cause; Y99.8 Other external cause status
CPT/HCPCS: 32555; 36415; 71045; 71250; 74018; 76604; 78580; 80048; 80053; 80061; 81003; 82040; 82306; 82607; 82728; 82746; 82962; 83036; 83540; 83550; 83615; 83735; 83880; 84100; 84134; 84145; 84443; 85025; 87070; 87077; 87186; 88108; 88312; 92523; 93005; 94640; 97110; 97116; 97150; 97162; 97166; 97530; 97535; 97542; C9113; J0692; J0696; J1650; J1815; J3475; J3490; J7060; J7608; A5200